=== PATIENT | female | born 1980 | race Caucasian/White ===

== ENCOUNTER → 2022-08-30 | Outpatient (CLI) | payer BC, OTHER | LOC: MAMMO 08:30 | DX: Z12.31 Encounter for screening mammogram for malignant neoplasm of breast (principal) ==

== ENCOUNTER 2023-01-05 08:00 | Outpatient (RCR) | payer BC, OTHER | END 2023-01-11 | disposition home or self-care (01) | LOC: PT → EDSTATUS 10:44 | DX: M25.511 Pain in right shoulder (principal) ==

== ENCOUNTER 2023-01-16 08:03 | Outpatient (RCR) | payer BC, OTHER | END 2023-02-10 | disposition home or self-care (01) | LOC: PT | DX: M25.511 Pain in right shoulder (principal) ==

== ENCOUNTER 2023-03-14 08:00 | Outpatient (RCR) | payer BC, OTHER | END 2023-04-12 | disposition home or self-care (01) | LOC: PT | DX: M25.511 Pain in right shoulder (principal) ==

== ENCOUNTER → 2024-01-07 | Day surgery (SDC) | payer BC, OTHER | LOC: MSO 07:34 | DX: Z12.11 Encounter for screening for malignant neoplasm of colon (principal) | CPT/HCPCS: 00812; J2704; J7120 ==